=== PATIENT | male | born 1975 | race Caucasian/White ===

== ENCOUNTER 2016-03-30 09:11 | Emergency (ER) | payer SELFPAY ==
[~2016-03-30] VITALS: Ht 180.3 cm; Wt 81.8 kg
[2016-03-30 09:30] VITALS: BP 138/89
[2016-03-30 09:59] LABS: HEMATOCRIT 42.4 % (38.0-50.0); MCH 31.3 PG (29.0-34.0); MCHC 35.6 G/DL (30.0-36.0); MEAN PLAT.VOLUME 9.1 uM^3 (9.0-12.4); PLATELET COUNT 263 K/uL (156-360); RBC DIS.WIDTH-CV 12.7 % (11.8-14.6); RBC DIS.WIDTH-SD 39.7 % (39-53); RED BLOOD COUNT 4.82 M/uL (4.00-5.50); WHITE BLOOD COUNT 7.5 K/uL (4.1-10.2)
[2016-03-30 10:07] LABS: CHLORIDE 105 mEq/L (99-109); POTASSIUM 4.2 mEq/L (3.7-5.4); SODIUM 138 mEq/L (136-147)
[2016-03-30 10:09] LABS: GLUCOSE 91 mg/dL (70-99)
[2016-03-30 10:10] LABS: ANION GAP 10 MEQ/L (2-14)
[2016-03-30 10:13] LABS: GFR ESTIMATE (CALCULATED) > 59 mL/min/
[2016-03-30 10:14] LABS: UREA NITROGEN (BUN) 15 mg/dL (9-23)
[2016-03-30 10:19] LABS: TROP-I INTERPRETATION NEGATIVE; TROPONIN-I < 0.01 ng/mL (0.0-0.30)
[2016-03-30 13:44] LABS: TROP-I INTERPRETATION NEGATIVE; TROPONIN-I < 0.01 ng/mL (0.0-0.30)
== END 2016-03-30 14:25 | disposition left against medical advice (07) ==
LOC: EME 09:11
PROVIDERS: Physician Assistant
DX: R07.9 Chest pain, unspecified (principal); Z53.29 Procedure and treatment not carried out because of patient's decision for other reasons
CPT/HCPCS: 71020; 80048; 83735; 84484; 85027; 93005; 99281; 99284